=== PATIENT | male | born 1965 | race African-American/Black ===

== ENCOUNTER 2018-02-13 20:58 | Emergency (ER) | payer OTHER ==
[~2018-02-13] VITALS: Ht 185.4 cm; Wt 81.6 kg
[2018-02-13 21:06] VITALS: Ht 185.4 cm; Wt 81.6 kg
[2018-02-13 21:44] LABS: BASOPHIL % 0.4 % (0-2); PLATELET COUNT 181 x10^3mcL (130-400); RED CELL DISTRIBUTION WIDTH 13.5 % (11.5-14.5)
[2018-02-13 21:55] LABS: CALCIUM 8.6 mg/dL (8.5-10.1); CARBON DIOXIDE 29.2 mmol/L (21-32); CHLORIDE SERUM 107 mmol/L (98-107); CREATININE SERUM 1.2 mg/dL (0.7-1.3); GFR1 > 60 mL/min; GLUCOSE SERUM 114 mg/dL (74-106); POTASSIUM SERUM 3.7 mmol/L (3.5-5.1); SODIUM SERUM 143 mmol/L (136-145)
[2018-02-13 21:59] LABS: ALBUMIN 3.6 g/dL (3.4-5.0); ALKALINE PHOSPHATASE 98 U/L (46-116); ALT/SGPT 47 U/L (16-63); AST/SGOT 39 U/L (15-37); BILIRUBIN TOTAL 0.93 mg/dL (0.20-1.00); TOTAL PROTEIN, SERUM 7.4 g/dL (6.4-8.2)
[2018-02-13 22:30] VITALS: BP 122/82
== END 2018-02-13 22:30 | disposition home or self-care (01) ==
LOC: ED 20:58
PROVIDERS: Emergency Medicine
DX: R07.89 Other chest pain (principal); R10.9 Unspecified abdominal pain; R50.9 Fever, unspecified
CPT/HCPCS: 85378; J1885

== ENCOUNTER 2019-07-23 13:22 | Emergency (ER) | payer BC ==
[~2019-07-23] VITALS: Ht 185.4 cm; Wt 80.7 kg
[2019-07-23 13:28] VITALS: Ht 185.4 cm; Wt 80.7 kg
[2019-07-23 14:41] VITALS: BP 115/85
== END 2019-07-23 14:41 | disposition home or self-care (01) ==
LOC: ED 13:22
DX: M25.572 Pain in left ankle and joints of left foot (principal); V23.4XXA Motorcycle driver injured in collision with car, pick-up truck or van in traffic accident, initial encounter; Y93.I9 Activity, other involving external motion; Y92.413 State road as the place of occurrence of the external cause; Y99.8 Other external cause status
CPT/HCPCS: 90715